=== PATIENT | female | born 1955 | race Caucasian/White ===

== ENCOUNTER 2016-10-29 09:18 | Emergency (ER) | payer BC ==
--- NOTE | 2016-10-29 11:02 | RAD ---
INDICATION: Atraumatic left foot and ankle pain and swelling COMPARISON: None. TECHNIQUE: 3 views of the left ankle and 3 views of the left foot were obtained. FINDINGS: The well corticated bones exhibit normal alignment. Joint spaces appear maintained. No fracture is seen. Degenerative changes include enthesophyte formation on the calcaneal tubercle at the origin of the plantar fascia. IMPRESSION: NO ACUTE ABNORMALITY OF THE LEFT FOOT OR ANKLE. If the patient's symptoms persist, follow-up imaging is recommended.
[2016-10-29 11:44] VITALS: BP 156/95
--- NOTE | 2016-11-06 15:49 | UC ---
Ashli Jaeger Claudia, scribed for Garima Mays MD on 10/29/16 at 1021 . Lower Extremity/Ankle HPI - HPI Summary HPI Summary: 61 year old female presents to the [facility] with left lateral foot pain. Pt states sudden onset Sunday evening. She notes that the pain woke her up Sunday night. She ran errands yesterday and gingerly walked on it but the pain seems to have worsened since yesterday. She denies any fever chills. She notes that the pain is aggravated with standing and ambulation; she notes the pain radiates through her foot and her ankle during ambulation. She notes that yesterday there was no swelling or erythematous character yesterday but it seemed to have occurred last night. Pt also notes small scab over the effected area. 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 - History of Current Complaint Chief Complaint: UCLowerExtremity Stated Complaint: FOOT INJURY Time Seen by Provider: 10/29/16 10:05 Hx Obtained From: Patient Onset/Duration: Sudden Onset, Lasting Days, Still Present Aggravating Factor(s): Standing, Ambulation - Allergies/Home Medications Allergies/Adverse Reactions: Allergies Allergy/AdvReac Type Severity Reaction Status Date / Time No Known Allergies Allergy Verified 10/29/16 09:27 Home Medications: Home Medications Calcium 1 tab DAILY 10/29/16 [History Confirmed 10/29/16] Coenzyme Q10 (Ubidecarenone) [Co Q-10] 1 cap DAILY 10/29/16 [History Confirmed 10/29/16] Multiple Vitamins W/ Minerals [Multivitamin] 1 tab DAILY 10/29/16 [History Confirmed 10/29/16] Probiotic Product [Probiotic] 1 tab DAILY 10/29/16 [History Confirmed 10/29/16] amLODIPine TAB* [Norvasc TAB*] 1 tab DAILY 10/29/16 [History Confirmed 10/29/16] PMH/Surg Hx/FS Hx/Imm Hx Previously Healthy: Yes Endocrine History Of: Denies: Diabetes Cardiovascular History Of: Reports: Hypertension - On meds Cancer History Of: Denies: Breast Cancer - Surgical History Surgical History: Yes Surgery Procedure, Year, and Place: Gallbladder. Tonsils. Hemorrhoids. Partial thyroid - Family History Known Family History: Positive: Diabetes - Social History Occupation: Employed Full-time Lives: With Family Alcohol Use: Occasionally Substance Use Type: None Smoking Status (MU): Never Smoked Tobacco - Immunization History Most Recent Influenza Vaccination: Aug 2016 Review of Systems Constitutional: Other - NO FEVER OR CHILLS Skin: Other - scab to the left lateral foot, left foot is edematous and erythematous Eyes: Negative ENT: Negative Respiratory: Negative Cardiovascular: Negative Gastrointestinal: Negative Genitourinary: Negative Motor: Negative Neurovascular: Negative Musculoskeletal: Other: - left lateral foot pain Neurological: Negative Psychological: Negative All Other Systems Reviewed And Are Negative: Yes Physical Exam Triage Information Reviewed: Yes Appearance: Well-Nourished Vital Signs: Initial Vital Signs Temp 97.9 F 10/29/16 09:30 Pulse 74 10/29/16 09:30 Resp 18 10/29/16 09:30 BP 148/102 10/29/16 09:30 Pulse Ox 100 10/29/16 09:30 Vital Signs Reviewed: Yes Eye Exam: Normal ENT Exam: Normal Neck exam: Normal Respiratory Exam: Normal Respiratory: Positive: Chest non-tender, Lungs clear, Normal breath sounds Cardiovascular Exam: Normal Cardiovascular: Positive: RRR, No Murmur, Pulses Normal, Brisk Capillary Refill Abdominal Exam: Normal Abdomen Description: Positive: Nontender, No Organomegaly, Soft Musculoskeletal Exam: Normal Musculoskeletal: Positive: Strength Intact Neurological Exam: Normal Psychological Exam: Normal Skin Exam: Normal Diagnostics - Radiology FOOT XRAY Xray Interpretation: No Acute Changes - NO ACUTE ABNORMALITIES OF THE FOOT OR ANKLE Radiology Interpretation Completed By: Radiologist ANKLE XRAY Xray Interpretation: No Acute Changes - NO ACUTE ABNORAMLITIES OF THE FOOT OR ANKLE Radiology Interpretation Completed By: Radiologist Re-Evaluation - Re-Evaluation 1 Re-Evaluation Time: 10:25 Comment: During PE pt declines analgesic 2 Re-Evaluation Time: 11:38 Comment: XRAY RESULTS ARE DISCUSSED WITH PT Lower Extremity Course/Dx - Course Course Of Treatment: No new problems in ccc, considered differential diagnoses. xray report noted. Blood work ordered. Requests tick borne illness test. Need for close f/u reviewed. Rx abx and prednisone. Questions answered to the best of my ability. - Differential Dx/Diagnosis Provider Diagnoses: Cellulitis. Possible concomitant allergic reaction Discharge - Discharge Plan Condition: Stable Disposition: HOME Prescriptions: Cephalexin CAP* [Keflex 500 CAP*] 500 mg PO TID #21 cap predniSONE TAB* [Deltasone TAB*] 10 mg PO DAILY #10 tab Patient Education Materials: Cellulitis (ED) Forms: *Work Release Referrals: Meghna Gaffney MD [Primary Care Provider] - Additional Instructions: Follow up with Dr. Gaffney, if possible at the end of this week. Elevate your foot as much as possible. Minimize weight bearing as possible. Eat yogurt while taking antibiotic. Please seek medical attention for any worse or new problems. Blood work orders attached (drawn today). The documentation as recorded by the Ashli keane Claudia accurately reflects the service I personally performed and the decisions made by me, Garima Mays MD.
== END 2016-10-29 11:47 | disposition home or self-care (01) ==
LOC: UCEAST 09:18
DX: L03.116 Cellulitis of left lower limb (principal); I10 Essential (primary) hypertension
CPT/HCPCS: 36415; 85652; 86140; 86618; 99213; G0463